=== PATIENT | female | born 1960 | race Caucasian/White ===

== ENCOUNTER 2018-06-04 15:28 | Inpatient (IN) ==
[2018-06-06] MEDS: Aspirin Enteric Coated 81 MG Tablet PO SCH (09:41)
--- NOTE | 2018-06-06 15:01 | Internal Med History&Physical ---
Date of Encounter: 06/06/18 Time of Encounter: 14:25 Assessment and Plan (1) Acute CVA (cerebrovascular accident) Current visit: No Status: Acute Multifocal infarcts involving medulla and cerebellum. Continue aspirin and Plavix (2) Weakness Current visit: No Status: Acute PT and OT evaluations have been ordered. (3) Hypothyroidism Current visit: No Status: Acute Increase Synthroid to 150 g daily. Qualifiers: Hypothyroidism type: acquired Qualified Code(s): E03.9 - Hypothyroidism, unspecified (4) Hyperlipidemia Current visit: No Status: Acute Continue atorvastatin. Qualifiers: Hyperlipidemia type: unspecified Qualified Code(s): E78.5 - Hyperlipidemia, unspecified (5) Hypertension Current visit: No Status: Chronic Continue metoprolol and Cozaar. Qualifiers: Hypertension type: essential hypertension Qualified Code(s): I10 - Essential (primary) hypertension Internal Medicine - H&P: HPI Chief complaint: Strokes Admitted From: Hospital to Hospital Transfer Plans for Post Hospital Care: Home History of present illness: Ms. Anderson is a 57 year old right-handed female who was hospitalized at [facility] May 29 after developing stroke symptoms of diplopia and right-sided weakness. Initial MRI showed acute lacunar infarct in the left medullary pyramid. Follow-up MRI 06/03/2018 showed increased size of the medullary infarct and a new 1 cm infarct in the right cerebellum hemisphere. There was remote right occipital infarct seen. YAIR and TTE showed no thrombus or veget ations. A loop recorder was placed by cardiology. She was placed on aspirin and Plavix and discharged to [facility] swing bed for rehabilitation therapy prior to returning to independent living. 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 She had complete resolution of symptoms without recurrence. She denies other large distribution strokes or seizures. Past Med Surg Social Fam HX - Past Medical History Medical history: CVA, hypertension, migraine, myocardial infarction, thyroid disease Psychiatric history: depression - Past Surgical History Surgical History: hysterectomy, thyroidectomy Additional surgical history: Cardioangioplasty, bladder sling, 4 hernia repairs, DNC - Social History Smoking Status: Current every day smoker Packs per day: 1 Smokeless Tobacco Status: No Alcohol use: none Drug use: none - Family History Mother Name: Concepcion Azul Living Status: Age at : 72 Cause of : Heart Disease/ Cancer Hx Family Cardiac Disorders: Yes Hx Family Cancer: Yes (Lung, throat) Hx Family Medical Disorders: Yes (Cancer-lung and neck) Father Living Status: Still Living Hx Family Cardiac Disorders: Yes (HTN) Brother Living Status: Still Living Hx Family Endocrine Disorder: Yes (DM) Internal Medicine - H&P: Meds Acetaminophen [Tylenol] 650 mg PO BID PRN 05/29/18 [History] Amitriptyline [Elavil] 25 mg PO HS 05/29/18 [History] Duloxetine HCl [Cymbalta] 60 mg PO DAILY 05/29/18 [History] Atorvastatin [Lipitor] 80 mg PO HS #30 tablet 06/01/18 [Rx] Levothyroxine [Synthroid] 88 mcg PO DAILY@0630 #30 tablet 06/01/18 [Rx] Aspirin Enteric Coated [Aspirin EC] 81 mg PO DAILY #30 tablet. 06/05/18 [Rx] Clopidogrel [Plavix] 75 mg PO DAILY #30 tablet 06/05/18 [Rx] Losartan [Cozaar] 50 mg PO DAILY #30 tablet 06/05/18 [Rx] Metoprolol [Lopressor] 12.5 mg PO BID #60 tablet 06/05/18 [Rx] Allergy/AdvReac Type Severity Reaction Status Date / Time No Known Allergies Allergy Verified 05/29/18 15:34 All Systems PM: A 10-system review of systems was performed and is negative for pertinent findings except as documented above in the HPI. Review of systems: Gen.: She states her weight has been stable for several months Cardiovascular: She has history of hypertension. She reports UT in 1991 with angioplasty but no stent placed. She denies heart failure angina DVT pulmonary embolus. Respiratory: She smoked since age 15 until her recent strokes up to one and a half packs per day. She denies chronic lung disease and does not use home oxygen. GI: She denies disorders of her liver gallbladder or exocrine pancreas : She had kidney stones in the 1980s without recurrence. She had a bladder sling surgery in the past and 4 hernia repairs. She denies other kidney or bladder disorders Neurologic: As per history of present illness Endocrine: She had subtotal thyroidectomy 1978 for Graves' disease. She has been on replacement levothyroxine for approximately 20 years. She denies diabetes. She was unaware she had hyperlipidemia. Hematology/oncology: She had cancer of the cervix in 1985 treated by colposcopy intervention. She denies recurrence. She denies other internal malignancies or anemia. Psychiatric: She has depression but denies anxiety or other mental health issues. Musk skeletal: she denies arthritis gout or other bone joint or muscle disorders. - Constitutional Vitals: Temp Pulse Resp BP Pulse Ox 98.5 F 83 20 129/82 95 06/06/18 13:49 06/06/18 13:49 06/06/18 13:49 06/06/18 13:49 06/06/18 13:49 Exam: Gen.: She is a well-developed well-nourished female lying in bed who appears in no acute distress HEENT: Head is atraumatic and normocephalic. Eyes: EOMI. There is no scleral icterus. Mouth: Mucosa is moist. Neck: Supple and nontender. There is no thyromegaly or adenopathy noted. Heart: Regular without murmurs gallops or ectopics Lungs: No wheezes or crackles are heard. Abdomen: Soft and nontender. No masses or guarding are noted. Extremities: There is no cyanosis edema or clubbing noted. Dorsalis pedis and posttibial pulses are 1-2 over 2 bilaterally. Neurologic: Mental status: She is talkative and a good historian. Cranial nerves: Smile is symmetric. Forehead wrinkles bilaterally. Tongue protrudes midline. EOMI. Motor: She cannot lift her right arm completely off the bed against gravity. The left arm moves normally. The right leg ankle has 1/2 strength and left ankle 2/2 strength on flexion and extension against resistance. Rapid finger movement testing is intact with the left hand but very impaired with the right hand. Cerebellar: Finger to nose was completed without difficulty with the left hand but cannot be completed with the right hand. Skin: Warm and dry
[2018-06-07] MEDS: Aspirin Enteric Coated 81 MG Tablet PO SCH (08:00)
--- NOTE | 2018-06-07 11:28 | Internal Med Progress Note ---
Date of Encounter: 06/07/18 Time of Encounter: 11:20 - Assessment and plan (1) Acute CVA (cerebrovascular accident) Current Visit: No Status: Acute Assessment and plan: June 07. Continue aspirin and Plavix (2) Weakness Current Visit: No Status: Acute Assessment and plan: June 07. Continue PT and OT intervention. (3) Hypothyroidism Current Visit: No Status: Acute Assessment and plan: June 07. Continue Synthroid 150 g daily Qualifiers: Hypothyroidism type: acquired Qualified Code(s): E03.9 - Hypothyroidism, unspecified (4) Hyperlipidemia Current Visit: No Status: Acute Assessment and plan: June 07. Continue atorvastatin. Qualifiers: Hyperlipidemia type: unspecified Qualified Code(s): E78.5 - Hyperlipidemia, unspecified (5) Hypertension Current Visit: No Status: Chronic Assessment and plan: June 07. Blood pressure show significant fluctuation. Continue present dose metoprolol and Cozaar. Qualifiers: Hypertension type: essential hypertension Qualified Code(s): I10 - Essential (primary) hypertension (6) Constipation Current Visit: Yes Status: Acute Assessment and plan: June 07. Order scheduled MOM every other day. Qualifiers: Constipation type: unspecified constipation type Qualified Code(s): K59.00 - Constipation, unspecified - Subjective Interval history: June 07. She has no new complaints. She feels her right arm is moving better. - Constitutional Vitals: Temp Pulse Resp BP Pulse Ox 98.4 F 82 17 155/106 93 06/07/18 07:30 06/07/18 07:30 06/07/18 07:30 06/07/18 07:30 06/07/18 07:30 Exam: She is resting comfortably in bed and appears in no acute distress. Her affect is bright and cheerful. She has gained slight more strength and control of her right arm since yesterday. I reviewed her medications and lab results. Consult Discharge Plan - Plan Referrals: NONE,PCP [Primary Care Provider] - 1 week
[2018-06-07] MEDS ORDERED: MOM Conc 10 ML UD.LIQ PO SCH (11:30)
[2018-06-07] MEDS: MOM Conc 10 ML UD.LIQ PO SCH (21:48)
[2018-06-08] MEDS: Aspirin Enteric Coated 81 MG Tablet PO SCH (09:23)
--- NOTE | 2018-06-08 11:05 | Internal Med Progress Note ---
Date of Encounter: 06/08/18 Time of Encounter: 10:55 - Assessment and plan (1) Acute CVA (cerebrovascular accident) Current Visit: No Status: Acute Assessment and plan: June 07. Continue aspirin and Plavix (2) Weakness Current Visit: No Status: Acute Assessment and plan: June 07. Continue PT and OT intervention. (3) Hypothyroidism Current Visit: No Status: Acute Assessment and plan: June 07. Continue Synthroid 150 g daily Qualifiers: Hypothyroidism type: acquired Qualified Code(s): E03.9 - Hypothyroidism, unspecified (4) Hyperlipidemia Current Visit: No Status: Acute Assessment and plan: June 07. Continue atorvastatin. Qualifiers: Hyperlipidemia type: unspecified Qualified Code(s): E78.5 - Hyperlipidemia, unspecified (5) Hypertension Current Visit: No Status: Chronic Assessment and plan: June 07. Blood pressure show significant fluctuation. Continue present dose metoprolol and Cozaar. Qualifiers: Hypertension type: essential hypertension Qualified Code(s): I10 - Essential (primary) hypertension (6) Constipation Current Visit: Yes Status: Acute Assessment and plan: June 07. Order scheduled MOM every other day. Qualifiers: Constipation type: unspecified constipation type Qualified Code(s): K59.00 - Constipation, unspecified - Subjective Interval history: June 07. She has no new complaints. She feels her right arm is moving better. June 08. She has no new complaints and feels she is improving. - Constitutional Vitals: Temp Pulse Resp BP Pulse Ox 98.2 F 87 15 146/89 96 06/08/18 06:36 06/08/18 06:36 06/08/18 06:36 06/08/18 06:36 06/08/18 09:54 Exam: She is resting comfortably in a chair at bedside doing exercises. Her affect is bright and cheerful. I reviewed her medications and vital signs. Consult Discharge Plan - Plan Referrals: NONE,PCP [Primary Care Provider] - 1 week
[2018-06-08] MEDS: Acetaminophen 325 MG TABLET PO PRN (21:16)
[2018-06-09] MEDS: Aspirin Enteric Coated 81 MG Tablet PO SCH (08:57)
[2018-06-09] MEDS: MOM Conc 10 ML UD.LIQ PO SCH (21:02)
[2018-06-10] MEDS: Aspirin Enteric Coated 81 MG Tablet PO SCH (08:58)
--- NOTE | 2018-06-10 10:06 | Internal Med Progress Note ---
Date of Encounter: 06/10/18 Time of Encounter: 09:59 - Assessment and plan (1) Acute CVA (cerebrovascular accident) Current Visit: No Status: Acute Assessment and plan: June 07. Continue aspirin and Plavix (2) Weakness Current Visit: No Status: Acute Assessment and plan: June 07. Continue PT and OT intervention. (3) Hypothyroidism Current Visit: No Status: Acute Assessment and plan: June 07. Continue Synthroid 150 g daily Qualifiers: Hypothyroidism type: acquired Qualified Code(s): E03.9 - Hypothyroidism, unspecified (4) Hyperlipidemia Current Visit: No Status: Acute Assessment and plan: June 07. Continue atorvastatin. Qualifiers: Hyperlipidemia type: unspecified Qualified Code(s): E78.5 - Hyperlipidemia, unspecified (5) Hypertension Current Visit: No Status: Chronic Assessment and plan: June 07. Blood pressure show significant fluctuation. Continue present dose metoprolol and Cozaar. June 10. Blood pressure shows less fluctuation but is higher than desirable. Change metoprolol to Toprol-XL 50 mg daily. Continue Cozaar. Qualifiers: Hypertension type: essential hypertension Qualified Code(s): I10 - Essential (primary) hypertension (6) Constipation Current Visit: Yes Status: Acute Assessment and plan: June 07. Order scheduled MOM every other day. Qualifiers: Constipation type: unspecified constipation type Qualified Code(s): K59.00 - Constipation, unspecified - Subjective Interval history: June 07. She has no new complaints. She feels her right arm is moving better. June 08. She has no new complaints and feels she is improving. June 10. She has no new complaints. - Constitutional Vitals: Temp Pulse Resp BP Pulse Ox 98.3 F 89 17 146/97 93 06/10/18 06:44 06/10/18 06:44 06/10/18 06:44 06/10/18 06:44 06/10/18 06:44 Exam: She is resting comfortably on the side of bed. Her right arm has improved strength. Her affect is bright and cheerful. I reviewed her medications and lab results. Consult Discharge Plan - Plan Referrals: NONE,PCP [Primary Care Provider] - 1 week
[2018-06-10] MEDS: Metoprolol XL (24 HR) Succ 50 MG TAB.ER.24H PO SCH (12:50)
[2018-06-11] MEDS: Aspirin Enteric Coated 81 MG Tablet PO SCH (08:12)
[2018-06-11] MEDS: Metoprolol XL (24 HR) Succ 50 MG TAB.ER.24H PO SCH (08:22)
[2018-06-11] MEDS: Acetaminophen 325 MG TABLET PO PRN (21:33)
[2018-06-11] MEDS: MOM Conc 10 ML UD.LIQ PO SCH (21:34)
[2018-06-12] MEDS: Metoprolol XL (24 HR) Succ 50 MG TAB.ER.24H PO SCH (08:18)
[2018-06-12] MEDS: Aspirin Enteric Coated 81 MG Tablet PO SCH (08:18)
--- NOTE | 2018-06-12 15:51 | Internal Med Progress Note ---
Date of Encounter: 06/12/18 Time of Encounter: 15:44 - Assessment and plan (1) Acute CVA (cerebrovascular accident) Current Visit: No Status: Acute Assessment and plan: June 07. Continue aspirin and Plavix (2) Weakness Current Visit: No Status: Acute Assessment and plan: June 07. Continue PT and OT intervention. (3) Hypothyroidism Current Visit: No Status: Acute Assessment and plan: June 07. Continue Synthroid 150 g daily Qualifiers: Hypothyroidism type: acquired Qualified Code(s): E03.9 - Hypothyroidism, unspecified (4) Hyperlipidemia Current Visit: No Status: Acute Assessment and plan: June 07. Continue atorvastatin. Qualifiers: Hyperlipidemia type: unspecified Qualified Code(s): E78.5 - Hyperlipidemia, unspecified (5) Hypertension Current Visit: No Status: Chronic Assessment and plan: June 07. Blood pressure show significant fluctuation. Continue present dose metoprolol and Cozaar. June 10. Blood pressure shows less fluctuation but is higher than desirable. Change metoprolol to Toprol-XL 50 mg daily. Continue Cozaar. June 12. Blood pressure suboptimally controlled. Increase Toprol-XL to 75 mg daily. Continue Cozaar. Qualifiers: Hypertension type: essential hypertension Qualified Code(s): I10 - Essential (primary) hypertension (6) Constipation Current Visit: Yes Status: Acute Assessment and plan: June 07. Order scheduled MOM every other day. Qualifiers: Constipation type: unspecified constipation type Qualified Code(s): K59.00 - Constipation, unspecified - Subjective Interval history: June 07. She has no new complaints. She feels her right arm is moving better. June 08. She has no new complaints and feels she is improving. June 10. She has no new complaints. June 12. She has no new complaints. She feels she is improving. - Constitutional Vitals: Temp Pulse Resp BP Pulse Ox 98.0 F 69 18 136/82 97 06/12/18 04:00 06/12/18 04:00 06/12/18 04:00 06/12/18 04:00 06/12/18 04:00 Exam: She is resting comfortably in bed. She is able lift her right arm against gravity. Coordination appears slightly improved in intentional movement. I reviewed her medications and lab results. Consult Discharge Plan - Plan Referrals: NONE,PCP [Primary Care Provider] - 1 week
[2018-06-13 06:40] LABS: Basophils # 0.1 K/mcL (0.0-0.2); Eosinophils # 0.3 K/mcL (0.0-0.6); Eosinophils % 2.4 %; Hematocrit 43.1 % (35.3-44.9); Immature Granulocytes % 0.8 % (0-4); Lymphocytes # 1.8 K/mcL (0.6-4.6); Lymphocytes % 17.2 %; Mean Corpuscular HGB Conc 32.5 g/dL (31.6-35.5); Mean Corpuscular Hemoglobin 31.9 pg (28.0-33.3); Mean Corpuscular Volume 98.2 fL (83.0-100.0); Mean Platelet Volume 10.1 fL (9.4-12.4); Monocytes # 1.1 K/mcL (0.0-1.3); Monocytes % 10.5 %; Neutrophils # 7.2 K/mcL (1.6-8.9); Platelet Count 287 K/mcL (140-400); Red Blood Count 4.39 M/mcL (3.82-4.97); Red Cell Distribution Width 13.1 % (11.5-14.5); Segmented Neutrophils % 68.1 %
[2018-06-13 07:02] LABS: BUN/Creatinine Ratio 25 (6-26); Blood Urea Nitrogen 20 mg/dL (6-20); Calcium 9.5 mg/dL (8.6-10.3); Carbon Dioxide 28 mEq/L (23-29); Chloride 103 mEq/L (98-107); Glucose 109 mg/dL (70-105); Osmolality,Calculated 291 (280-300); Potassium 3.7 mEq/L (3.5-5.1); Sodium 139 mEq/L (136-145); eGFR For Non-African Americans > 60 (> 60)
[2018-06-13] MEDS: Aspirin Enteric Coated 81 MG Tablet PO SCH (08:42)
[2018-06-13] MEDS: Metoprolol XL (24 HR) Succ 50 MG TAB.ER.24H PO SCH (08:43)
[2018-06-13] MEDS: Acetaminophen 325 MG TABLET PO PRN (08:57)
[2018-06-13] MEDS: MOM Conc 10 ML UD.LIQ PO SCH (22:12)
[2018-06-14] MEDS: Metoprolol XL (24 HR) Succ 50 MG TAB.ER.24H PO SCH (09:16)
[2018-06-14] MEDS: Aspirin Enteric Coated 81 MG Tablet PO SCH (09:17)
--- NOTE | 2018-06-14 18:11 | Internal Med Progress Note ---
Date of Encounter: 06/14/18 Time of Encounter: 18:00 - Assessment and plan (1) Acute CVA (cerebrovascular accident) Current Visit: No Status: Acute Assessment and plan: June 07. Continue aspirin and Plavix (2) Weakness Current Visit: No Status: Acute Assessment and plan: June 07. Continue PT and OT intervention. (3) Hypothyroidism Current Visit: No Status: Acute Assessment and plan: June 07. Continue Synthroid 150 g daily Qualifiers: Hypothyroidism type: acquired Qualified Code(s): E03.9 - Hypothyroidism, unspecified (4) Hyperlipidemia Current Visit: No Status: Acute Assessment and plan: June 07. Continue atorvastatin. Qualifiers: Hyperlipidemia type: unspecified Qualified Code(s): E78.5 - Hyperlipidemia, unspecified (5) Hypertension Current Visit: No Status: Chronic Assessment and plan: June 07. Blood pressure show significant fluctuation. Continue present dose metoprolol and Cozaar. June 10. Blood pressure shows less fluctuation but is higher than desirable. Change metoprolol to Toprol-XL 50 mg daily. Continue Cozaar. June 12. Blood pressure suboptimally controlled. Increase Toprol-XL to 75 mg daily. Continue Cozaar. June 14. Blood pressure still suboptimally controlled. Increase Toprol XL to 100 mg daily and increase Cozaar to 100 mg daily Qualifiers: Hypertension type: essential hypertension Qualified Code(s): I10 - Essential (primary) hypertension (6) Constipation Current Visit: Yes Status: Acute Assessment and plan: June 07. Order scheduled MOM every other day. Qualifiers: Constipation type: unspecified constipation type Qualified Code(s): K59.00 - Constipation, unspecified - Subjective Interval history: June 07. She has no new complaints. She feels her right arm is moving better. June 08. She has no new complaints and feels she is improving. June 10. She has no new complaints. June 12. She has no new complaints. She feels she is improving. June 14. She has no new complaints. - Constitutional Vitals: Temp Pulse Resp BP Pulse Ox 98.3 F 83 16 153/102 96 06/14/18 08:12 06/14/18 08:12 06/14/18 08:12 06/14/18 08:12 06/14/18 08:12 Exam: She is resting comfortably in bed. She has improved strength and coordination of her right arm. Her affect is overall cheerful. I reviewed her medications and lab results. Internal Medicine: Result - Labs CBC & Chem 7: 06/13/18 05:37 06/13/18 05:37 Consult Discharge Plan - Plan Referrals: NONE,PCP [Primary Care Provider] - 1 week
[2018-06-14] MEDS ORDERED: amLODIPine 5 MG TABLET PO ONE (22:30)
[2018-06-15] MEDS: Aspirin Enteric Coated 81 MG Tablet PO SCH (09:09)
[2018-06-15] MEDS: Metoprolol XL (24 HR) Succ 50 MG TAB.ER.24H PO SCH (09:10)
[2018-06-15] MEDS: Acetaminophen 325 MG TABLET PO PRN (09:15)
[2018-06-15] MEDS ORDERED: amLODIPine 5 MG TABLET PO STA (20:44)
[2018-06-15] MEDS: MOM Conc 10 ML UD.LIQ PO SCH (21:14)
[2018-06-16] MEDS: Metoprolol XL (24 HR) Succ 50 MG TAB.ER.24H PO SCH (09:52)
[2018-06-16] MEDS: Aspirin Enteric Coated 81 MG Tablet PO SCH (09:52)
[2018-06-16] MEDS: Acetaminophen 325 MG TABLET PO PRN ×2 (15:30→22:01)
--- NOTE | 2018-06-16 18:17 | Internal Med Progress Note ---
Date of Encounter: 06/16/18 Time of Encounter: 18:10 - Assessment and plan (1) Acute CVA (cerebrovascular accident) Current Visit: No Status: Acute Assessment and plan: June 07. Continue aspirin and Plavix (2) Weakness Current Visit: No Status: Acute Assessment and plan: June 07. Continue PT and OT intervention. (3) Hypothyroidism Current Visit: No Status: Acute Assessment and plan: June 07. Continue Synthroid 150 g daily Qualifiers: Hypothyroidism type: acquired Qualified Code(s): E03.9 - Hypothyroidism, unspecified (4) Hyperlipidemia Current Visit: No Status: Acute Assessment and plan: June 07. Continue atorvastatin. Qualifiers: Hyperlipidemia type: unspecified Qualified Code(s): E78.5 - Hyperlipidemia, unspecified (5) Hypertension Current Visit: No Status: Chronic Assessment and plan: June 07. Blood pressure show significant fluctuation. Continue present dose metoprolol and Cozaar. June 10. Blood pressure shows less fluctuation but is higher than desirable. Change metoprolol to Toprol-XL 50 mg daily. Continue Cozaar. June 12. Blood pressure suboptimally controlled. Increase Toprol-XL to 75 mg daily. Continue Cozaar. June 14. Blood pressure still suboptimally controlled. Increase Toprol XL to 100 mg daily and increase Cozaar to 100 mg daily June 16. Blood pressure remains elevated. Add Norvasc 10 mg daily and continue Toprol-XL and Cozaar at present doses. Qualifiers: Hypertension type: essential hypertension Qualified Code(s): I10 - Essential (primary) hypertension (6) Constipation Current Visit: Yes Status: Acute Assessment and plan: June 07. Order scheduled MOM every other day. Qualifiers: Constipation type: unspecified constipation type Qualified Code(s): K59.00 - Constipation, unspecified - Subjective Interval history: June 07. She has no new complaints. She feels her right arm is moving better. June 08. She has no new complaints and feels she is improving. June 10. She has no new complaints. June 12. She has no new complaints. She feels she is improving. June 14. She has no new complaints. June 16. She has no new complaints and feels improved. She anticipates discharge home 06/18/2018. - Constitutional Vitals: Temp Pulse Resp BP Pulse Ox 98.6 F 75 14 143/107 96 06/16/18 07:17 06/16/18 07:17 06/16/18 07:17 06/16/18 07:17 06/16/18 07:17 Exam: She is sitting in a chair at bedside. She has improved dexterity of right hand movements. I reviewed her medications and lab results. Internal Medicine: Result - Labs CBC & Chem 7: 06/13/18 05:37 06/13/18 05:37 Consult Discharge Plan - Plan Referrals: NONE,PCP [Primary Care Provider] - 1 week
[2018-06-16] MEDS: amLODIPine 5 MG TABLET PO SCH (22:01)
[2018-06-17] MEDS: Metoprolol XL (24 HR) Succ 50 MG TAB.ER.24H PO SCH (08:40)
[2018-06-17] MEDS: amLODIPine 5 MG TABLET PO SCH (08:40)
[2018-06-17] MEDS: Aspirin Enteric Coated 81 MG Tablet PO SCH (08:40)
[2018-06-17] MEDS: MOM Conc 10 ML UD.LIQ PO SCH (22:18)
[2018-06-18 07:15] VITALS: BP 149/98
[2018-06-18] MEDS: amLODIPine 5 MG TABLET PO SCH (09:34)
[2018-06-18] MEDS: Aspirin Enteric Coated 81 MG Tablet PO SCH (09:34)
[2018-06-18] MEDS: Metoprolol XL (24 HR) Succ 50 MG TAB.ER.24H PO SCH (09:34)
[2018-06-18] MEDS: Acetaminophen 325 MG TABLET PO PRN (09:38)
--- NOTE | 2018-06-18 10:17 | Discharge Summary ---
Date of Encounter: 06/18/18 Time of Encounter: 10:02 - Discharge Diagnosis (1) Acute CVA (cerebrovascular accident) Priority: Primary Status: Acute (2) Weakness Priority: Secondary Status: Acute (3) Hypothyroidism Priority: Secondary Status: Acute Qualifiers: Hypothyroidism type: acquired Qualified Code(s): E03.9 - Hypothyroidism, unspecified (4) Hyperlipidemia Priority: Secondary Status: Acute Qualifiers: Hyperlipidemia type: unspecified Qualified Code(s): E78.5 - Hyperlipidemia, unspecified (5) Hypertension Priority: Secondary Status: Chronic Qualifiers: Hypertension type: essential hypertension Qualified Code(s): I10 - Essential (primary) hypertension (6) Constipation Priority: Secondary Status: Resolved Qualifiers: Constipation type: unspecified constipation type Qualified Code(s): K59.00 - Constipation, unspecified Hospital course: Ms. Anderson is a 57 year old female who was hospitalized at [facility] May 29- after developing stroke symptoms of diplopia and right-sided weakness. Initial MRI showed acute lacunar infarct in the left medullary pyramid. Follow-up MRI 06/03/2018 showed increased size of the medullary infarct and a new 1 cm infarct in the right cerebellum hemisphere. There was remote right occipital infarct seen. YAIR and TTE showed no thrombus or vegetations. A loop recorder was placed by cardiology. She was placed on aspirin and Plavix and discharged to [facility] swing bed for rehabilitation therapy prior to returning to independent living. Initial orders were written by the discharging physicians at [facility]. I saw her on June 06 performed a swing bed history and physical. She had physical therapy and occupational therapy evaluations with ongoing intervention. She made satisfactory progress and had increased movement ability and coordination of her right arm. She was stable for discharge home on June 18. She will continue to receive PT and OT intervention at outpatient therapy. Aspirin and Plavix will be continued. Synthroid dose was increased to 150 g daily due to elevated TSH. Her PCP can monitor labs. Blood pressure was initially above desirable levels. Cozaar and metoprolol doses were increased. Norvasc was added and blood pressure returned to a satisfactory level. She will continue this regimen at discharge. She will be discharged home and follow with her PCP Kelly Camacho CNP within 1 week. - Time Spent with Patient Total time spent providing and/or coordinating discharge services: - Discharge Medications Prescriptions: Amlodipine Besylate 10 mg PO DAILY #30 tablet Levothyroxine [Synthroid] 150 mcg PO DAILY@0630 #30 tablet Losartan Potassium 100 mg PO DAILY #30 tablet Metoprolol Succinate 100 mg PO DAILY #30 tab.er.24h Home Medications: Acetaminophen [Tylenol] 650 mg PO BID PRN 05/29/18 [History] Amitriptyline [Elavil] 25 mg PO HS 05/29/18 [History] Duloxetine HCl [Cymbalta] 60 mg PO DAILY 05/29/18 [History] Atorvastatin [Lipitor] 80 mg PO HS #30 tablet 06/01/18 [Rx] Aspirin Enteric Coated [Aspirin EC] 81 mg PO DAILY #30 tablet.dr 06/05/18 [Rx] Clopidogrel [Plavix] 75 mg PO DAILY #30 tablet 06/05/18 [Rx] Amlodipine Besylate 10 mg PO DAILY #30 tablet 06/18/18 [Rx] Levothyroxine [Synthroid] 150 mcg PO DAILY@0630 #30 tablet 06/18/18 [Rx] Losartan Potassium 100 mg PO DAILY #30 tablet 06/18/18 [Rx] Metoprolol Succinate 100 mg PO DAILY #30 tab.er.24h 06/18/18 [Rx] Allergies/Adverse Reactions: Allergy/AdvReac Type Severity Reaction Status Date / Time No Known Allergies Allergy Verified 05/29/18 15:34 Date of admission: 06/05/18 15:20 Primary care physician: Kelly Camacho CNP Consults: 06/05/18 13:59 Consult to Occupational Therapy [CONS] Routine Comment: Evaluate, develop and implement POC Reason for Consult: s/p stroke Does patient have active BEDREST order?: No Is patient medically & hemodynamically stable?: Yes Patient assessed for mobility or mobilized this visit?: Yes Consult to Physical Therapy [CONS] Routine Comment: Evaluate, develop and implement POC Reason for Consult: s/p stroke Does patient have active BEDREST order?: No Is patient medically & hemodynamically stable?: Yes Patient assessed for mobility or mobilized this visit?: Yes - Constitutional Vitals: Temp Pulse Resp BP Pulse Ox 97.6 F 89 16 149/98 95 06/18/18 07:14 06/18/18 07:14 06/18/18 07:14 06/18/18 07:14 06/18/18 07:14 - Patient Status Disposition: Home, Self-Care - Discharge Instructions Follow Up With: Savanna Camacho CNP [Partnered Physician] - 1 week - Diet and Activity Activity: as per physical therapy Diet: low fat, low cholesterol, low salt diet
== END 2018-06-18 11:36 | disposition home or self-care (01) | DRG 57 ==
LOC: INPPIK 06-05 15:20
PROVIDERS: ADMIT Internal Medicine; ATTEND Internal Medicine